=== PATIENT | male | born 1990 | race African-American/Black ===

== ENCOUNTER 2021-10-03 10:26 | Inpatient (IN) | payer OTHER, SELFPAY ==
--- NOTE | 2021-10-03 | ECG_ITS ---
Test Reason : MEDICAL CLEARANCE Blood Pressure : / mmHG Vent. Rate : 059 BPM Atrial Rate : 059 BPM P-R Int : 168 ms QRS Dur : 100 ms QT Int : 458 ms P-R-T Axes : 067 072 053 degrees QTc Int : 453 ms Sinus bradycardia Otherwise normal ECG When compared with ECG of 21-SEP-2019 13:53, No significant change was found Referred By: Kiersten Abbott Electronically Signed By:SELMA HERMAN MD
[2021-10-03 10:32] VITALS: BP 97/65; PULSE 65; RESP 18; TEMP 36.2; O2SAT 97; BMI 23.4
--- NOTE | 2021-10-03 11:01 | ED_ITS ---
HPI - Psych General Chief Complaint: ETOH/Substance Use Stated Complaint: detox crisis Time Seen by Provider: 10/03/21 11:00 Source: patient Mode of arrival: ambulatory Limitations: no limitations History of Present Illness MD complaint: suicidal ideation, feels depressed and alcohol abuse Onset (ago): day(s) (several) Duration: constant History of same: Yes Relieving factors: none Exacerbating factors: alcohol Context: recent alcohol abuse Associated psychiatric symptoms: depression and suicidal ideation Associated symptoms: denies other symptoms Treatments prior to arrival: none Related Data Allergies Allergy/AdvReac Type Severity Reaction Status Date / Time Pork/Porcine Containing AdvReac Stomach Verified 10/03/21 11:28 Products Upset Review of Systems Review of Systems: Constitutional : No Fever, No Chills ENT/Mouth : No Ear Pain, No Nasal Congestion, No sore throat Eyes: No Eye Pain, No Swelling, No Redness Cardiovascular : No Chest Pain, No SOB Respiratory : No Cough, No Sputum, No Dyspnea Gastrointestinal : No Nausea, No Vomiting, No Diarrhea, No Hematochezia, No Melena Genitourinary : No Dysuria, No Urinary Frequency, No Hematuria Musculoskeletal : No Myalgias Skin : No Skin Lesions, No rash Neuro : No Weakness, No Numbness, No Paresthesias, No Dizziness, No Headache Psych : positive Anxiety, positive Depression, positive SI no HI Heme/Lymph: No Lymphadenopathy Endocrine : No Polyuria, No Polydipsia All other systems reviewed and are negative [facility] Past Medical History Attestation statement: The following information was validated with the patient. Medical History Anxiety Depression PTSD (post-traumatic stress disorder) Social History Social History (Updated 10/03/21 @ 11:12 by Aurora Lara DO) Alcohol intake: current Patient Tobacco Use Status: Current everyday Tobacco user Substance Use Type: Crack/Cocaine and Marijuana Advance Directives: No Advance Directives Information Provided: Yes Physical Exam Vital Signs: Vital Signs: Last Vital Signs Temp 97.1 F 10/03/21 10:32 Pulse 65 10/03/21 10:32 Resp 18 10/03/21 10:32 BP 97/65 10/03/21 10:32 Pulse Ox 97 10/03/21 10:32 O2 Del Method 10/03/21 10:32 BMI result Body Mass Index 23.4 Appearance: Alert. Oriented X3. No acute distress. Calm and cooperative Eyes: Pupils equal, round and reactive to light. ENT: Pharynx normal. Neck: Normal inspection. Neck supple. CVS: Normal heart rate and rhythm. Pulses normal. Respiratory: No respiratory distress. Breath sounds normal. Abdomen: Soft and nontender. Skin: Skin warm and dry. Normal skin color. Normal skin turgor. Extremities: No lower extremity edema. No calf ttp Neuro: Oriented X 3. No motor deficit. No sensory deficit. CN 2-12 intact Course Course Course Narrative: Physician observation started at 1157am Patient placed in physician observation because the patient needed more time for [facility] to assess the need for psych admission. At the time observation was started the patient's vitals were stable, patient is alert and oriented. Neuro: nonfocal, CV RRR, Lungs clear S12 bed search MDM - Psych MDM Narrative Medical decision making narrative: 31 yo male with hx of depression, PTSD, has not been compliant with meds - drinking, smoking, using crack/cocaine comes in overwhelmed and feeling SI - at this time will obtain labs and refer to [facility] Lab Data Result diagrams: 10/03/21 11:26 10/03/21 11:26 Labs: Lab Results 10/03/21 10/03/21 10/03/21 Range/Units 11:11 11:11 11:26 WBC 5.4 (4.8-10.8) X10*3/uL RBC 4.57 L (4.60-5.80) X10*6/uL Hgb 13.9 L (14.0-18.0) g/dl Hct 41.0 L (42.0-52.0) % MCV 89.7 (80.0-98.0) fL MCH 30.4 (27.0-33.0) pg MCHC 33.9 (31.0-36.0) g/dl RDW 13.1 (11.0-16.0) % Plt Count 230 (160-400) X10*3/uL MPV 8.0 L (9.4-12.4) fL Immature Gran % (Auto) 0.2 (0.0-0.4) % Neut % (Auto) 33.8 L (45-73) % Lymph % (Auto) 55.8 H (20-40) % [place] % (Auto) 7.4 (2-11) % Eos % (Auto) 2.6 (0-4) % Baso % (Auto) 0.2 (0-2) % Lymph # (Auto) 3.0 (1.2-4.9) X10*3/uL [place] # (Auto) 0.4 (0.1-1.2) X10*3/uL Eos # (Auto) 0.1 (0.0-0.4) X10*3/uL Baso # (Auto) 0.0 (0.0-0.2) X10*3/uL Abs Immat Gran (auto) 0.01 (0.00-0.03) X10*3/uL Absolute Neuts (auto) 1.8 L (2.0-8.3) x10*3/uL Absolute Nucleated RBC 0.000 (0.0-0.012) X10*3/uL Nucleated RBC % (auto) 0.0 (0.0-0.2) /100WBC Sodium (135-145) mmol/L Potassium (3.3-5.1) mmol/L Chloride (96-108) mmol/L Carbon Dioxide (22-29) mmol/L Anion Gap (12-20) BUN (9-16) mg/dL Creatinine (0.5-1.4) mg/dL Estim Creat Clear Calc Estimated GFR Random Glucose (60-115) mg/dL Calcium (8.4-10.2) mg/dL Total Bilirubin (0.0-1.0) mg/dL Direct Bilirubin (0.0-0.5) mg/dL AST (5-37) U/L ALT (0-40) U/L Alkaline Phosphatase (39-117) U/L Total Protein (6.5-8.0) g/dL Albumin (3.5-5.0) g/dL Urine Opiates Screen Not Detected (Not Detect) Urine Fentanyl Screen Not Detected (Not Detect) Ur Barbiturates Screen Not Detected (Not Detect) Ur Phencyclidine Scrn Not Detected (Not Detect) Ur Amphetamines Screen Not Detected (Not Detect) U Benzodiazepines Scrn Not Detected (Not Detect) Urine Cocaine Screen POSITIVE H (Not Detect) U Marijuana (THC) Screen POSITIVE H (Not Detect) Ethyl Alcohol mg/dL COVID-19 ([facility]) Negative (Negative) COVID-19 Clin Com See Note 10/03/21 Range/Units 11:26 WBC (4.8-10.8) X10*3/uL RBC (4.60-5.80) X10*6/uL Hgb (14.0-18.0) g/dl Hct (42.0-52.0) % MCV (80.0-98.0) fL MCH (27.0-33.0) pg MCHC (31.0-36.0) g/dl RDW (11.0-16.0) % Plt Count (160-400) X10*3/uL MPV (9.4-12.4) fL Immature Gran % (Auto) (0.0-0.4) % Neut % (Auto) (45-73) % Lymph % (Auto) (20-40) % [place] % (Auto) (2-11) % Eos % (Auto) (0-4) % Baso % (Auto) (0-2) % Lymph # (Auto) (1.2-4.9) X10*3/uL [place] # (Auto) (0.1-1.2) X10*3/uL Eos # (Auto) (0.0-0.4) X10*3/uL Baso # (Auto) (0.0-0.2) X10*3/uL Abs Immat Gran (auto) (0.00-0.03) X10*3/uL Absolute Neuts (auto) (2.0-8.3) x10*3/uL Absolute Nucleated RBC (0.0-0.012) X10*3/uL Nucleated RBC % (auto) (0.0-0.2) /100WBC Sodium 139 (135-145) mmol/L Potassium 3.5 (3.3-5.1) mmol/L Chloride 106 (96-108) mmol/L Carbon Dioxide 24 (22-29) mmol/L Anion Gap 13 (12-20) BUN 8 L (9-16) mg/dL Creatinine 1.20 (0.5-1.4) mg/dL Estim Creat Clear Calc 94.9 Estimated GFR > 60 Random Glucose 108 (60-115) mg/dL Calcium 8.9 (8.4-10.2) mg/dL Total Bilirubin 0.4 (0.0-1.0) mg/dL Direct Bilirubin 0.2 (0.0-0.5) mg/dL AST 40 H (5-37) U/L ALT 31 (0-40) U/L Alkaline Phosphatase 43 (39-117) U/L Total Protein 6.9 (6.5-8.0) g/dL Albumin 4.2 (3.5-5.0) g/dL Urine Opiates Screen (Not Detect) Urine Fentanyl Screen (Not Detect) Ur Barbiturates Screen (Not Detect) Ur Phencyclidine Scrn (Not Detect) Ur Amphetamines Screen (Not Detect) U Benzodiazepines Scrn (Not Detect) Urine Cocaine Screen (Not Detect) U Marijuana (THC) Screen (Not Detect) Ethyl Alcohol 64 mg/dL COVID-19 ([facility]) (Negative) COVID-19 Clin Com Discharge Plan Discharge Clinical Impression: Polysubstance abuse Depression Qualifiers: Depression Type: other depression Qualified Code(s): F32.89 - Other specified depressive episodes Patient Disposition: Still a Patient
[2021-10-03] MEDS: Acetaminophen 325 MG TABLET 650 MG PO (11:24)
[2021-10-03] MEDS: Ondansetron ODT 4 MG TAB.RAPDIS TRANSLINGU (11:26)
[2021-10-03] MEDS: LORazepam 1 MG TABLET PO (11:32)
[2021-10-03 11:33] LABS: MANUAL DIFF FLAG NO
[2021-10-03 11:35] LABS: Basophils Percent Auto 0.2 % (0-2); Eosinophils Absolute Auto 0.1 X10*3/uL (0.0-0.4); Eosinophils Percent Auto 2.6 % (0-4); Hemoglobin 13.9 g/dl (14.0-18.0); Imm Gran Abs Auto 0.01 X10*3/uL (0.00-0.03); Imm Gran Pct Auto 0.2 % (0.0-0.4); Lymphocytes Percent Auto 55.8 % (20-40); Mean Corpuscular HGB Conc 33.9 g/dl (31.0-36.0); Mean Corpuscular Hemoglobin 30.4 pg (27.0-33.0); Mean Corpuscular Volume 89.7 fL (80.0-98.0); Monocytes Absolute Auto 0.4 X10*3/uL (0.1-1.2); Monocytes Percent Auto 7.4 % (2-11); Neutrophils Absolute Auto 1.8 x10*3/uL (2.0-8.3); Neutrophils Percent Auto 33.8 % (45-73); Platelet Count 230 X10*3/uL (160-400); Red Blood Count 4.57 X10*6/uL (4.60-5.80); Red Cell Distribution Width 13.1 % (11.0-16.0); White Blood Count 5.4 X10*3/uL (4.8-10.8)
[2021-10-03 11:48] LABS: Amphetamine Screen Urine Not Detected (Not Detect); Barbiturates, Urine Not Detected (Not Detect); Benzodiazepines Screen Urine Not Detected (Not Detect); Cannabinoid Screen Urine POSITIVE (Not Detect); Cocaine Screen Urine POSITIVE (Not Detect); Fentanyl, urine Not Detected (Not Detect); Opiate Screen Urine Not Detected (Not Detect); Phencyclidine Screen Urine Not Detected (Not Detect)
[2021-10-03 11:49] LABS: Alanine Aminotransferase 31 U/L (0-40); Albumin Level 4.2 g/dL (3.5-5.0); Alkaline Phosphatase 43 U/L (39-117); Anion Gap 13 (12-20); Aspartate Amino Transferase 40 U/L (5-37); Bilirubin Direct 0.2 mg/dL (0.0-0.5); Bilirubin Total 0.4 mg/dL (0.0-1.0); Blood Urea Nitrogen 8 mg/dL (9-16); Calcium 8.9 mg/dL (8.4-10.2); Carbon Dioxide 24 mmol/L (22-29); Chloride 106 mmol/L (96-108); Creatinine Clr Calc Pharmacy 94.9; Estimated Glomerular Filt Rate > 60; Ethanol 64 mg/dL; Glucose Random 108 mg/dL (60-115); Potassium 3.5 mmol/L (3.3-5.1); Sodium 139 mmol/L (135-145); Total Protein 6.9 g/dL (6.5-8.0)
[2021-10-03 11:53] LABS: COVID-19 Test Negative (Negative); IDNOW Serial# 16C4AD1C
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
--- NOTE | 2021-10-03 13:50 | MHC.RECOVSUP ---
? Reason for consult:recovery Support o Current location:[facility] o Identified substance use concern:Polysubstance - Seeking ATS (detox) - Support ? Intervention: o ATS bed search started/completed/in process o MAT started or to be started o Community resources provided o Harm reduction discussion ? Plan: o Referral to [facility] o Follow up tomorrow o Patient awaiting crisis evaluation o Patient to follow up with [facility] after discharge ? Additional information: Patient seeking detox, Radha coming to do an assessment, referred him to [facility] and the [facility] for MAT.
[2021-10-03] MEDS: FLUoxetine HCl 20 MG CAPSULE PO (18:35)
[2021-10-03] MEDS: QUEtiapine Fumarate 50 MG TABLET PO (18:35)
[2021-10-04] MEDS: traZODone HCL 50 MG TABLET PO (00:28)
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
[2021-10-04 07:04] VITALS: BP 120/59; PULSE 52; RESP 16; TEMP 36; O2SAT 96
[2021-10-04] MEDS: FLUoxetine HCl 20 MG CAPSULE PO (08:45)
[2021-10-04 09:52] LABS: Alanine Aminotransferase 26 U/L (0-40); Albumin Level 3.9 g/dL (3.5-5.0); Alkaline Phosphatase 39 U/L (39-117); Anion Gap 12 (12-20); Aspartate Amino Transferase 30 U/L (5-37); Bilirubin Total 0.2 mg/dL (0.0-1.0); Blood Urea Nitrogen 13 mg/dL (9-16); Calcium 8.8 mg/dL (8.4-10.2); Carbon Dioxide 25 mmol/L (22-29); Chloride 108 mmol/L (96-108); Cholesterol 166 mg/dL; Creatinine Clr Calc Pharmacy 96.6; Estimated Glomerular Filt Rate > 60; Glucose Fasting 88 mg/dL (60-99); HDL Cholesterol 57 mg/dL; LDL Cholesterol Calculated 95 mg/dl; Potassium 4.3 mmol/L (3.3-5.1); Sodium 141 mmol/L (135-145); Total Protein 6.6 g/dL (6.5-8.0); Triglycerides 70 mg/dL
[2021-10-04 10:40] LABS: Folate 11.3 ng/mL (> or = 4.0); Vitamin B12 213 pg/mL (200-900)
[2021-10-04] MEDS: Nicotine 7 MG PATCH.TD24 TRANSDERMA (12:01)
[2021-10-04] MEDS: QUEtiapine Fumarate 50 MG TABLET PO (12:01)
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
[2021-10-04 14:10] VITALS: BP 119/71; PULSE 60; RESP 16; TEMP 36.4; O2SAT 98
[2021-10-04] MEDS: LORazepam 1 MG TABLET PO (14:48)
[2021-10-05 06:00] VITALS: BP 115/77; PULSE 54; RESP 16; TEMP 36.4; O2SAT 99
[2021-10-05 09:04] LABS: Iron 145 mcg/dL (45-160); Percent Iron Saturation 38 % (15-50); Total Iron Binding Capacity 378 mcg/dL (228-428); Unsaturated Iron Binding 233 ug/dL
[2021-10-05] MEDS: Multivitamin TABLET 1 TAB PO (09:06)
[2021-10-05] MEDS: Thiamine HCL 100 MG TABLET PO (09:06)
[2021-10-05] MEDS: FLUoxetine HCl 20 MG CAPSULE PO (09:06)
[2021-10-05] MEDS: Folic Acid 1 MG TABLET PO (09:06)
[2021-10-05] MEDS: Nicotine 7 MG PATCH.TD24 TRANSDERMA (09:06)
[2021-10-05] MEDS: QUEtiapine Fumarate 50 MG TABLET PO ×2 (10:19→18:09)
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
[2021-10-05] MEDS: Prazosin HCL 1 MG CAPSULE 3 MG PO (20:09)
[2021-10-05] MEDS: QUEtiapine Fumarate 200 MG TABLET PO (20:10)
[2021-10-05 21:00] VITALS: BP 132/82; PULSE 61; RESP 16; TEMP 36.4; O2SAT 97
[2021-10-06] MEDS: Nicotine 7 MG PATCH.TD24 TRANSDERMA (09:15)
[2021-10-06] MEDS: Naltrexone HCl 50 MG TABLET 25 MG PO (09:16)
[2021-10-06] MEDS: FLUoxetine HCl Oral Solution 20 MG/5 ML SOLUTION 40 MG PO (09:16)
[2021-10-06] MEDS: Multivitamin TABLET 1 TAB PO (09:16)
[2021-10-06] MEDS: Folic Acid 1 MG TABLET PO (09:17)
[2021-10-06] MEDS: Thiamine HCL 100 MG TABLET PO (09:17)
[2021-10-06 09:30] VITALS: BP 139/86; PULSE 69; RESP 17; TEMP 36.3; O2SAT 94
[2021-10-06] MEDS: QUEtiapine Fumarate 50 MG TABLET PO (11:02)
--- NOTE | 2021-10-06 14:59 | HO.PSYCHPN ---
Subjective Subjective Date of Service: 10/06/21 Reason For Visit: SI Subjective Notes: Conditional Voluntary Healthcare Proxy: No Guardianship: No Medical Problems Affecting Mental Status: No Interim History: Pt wondering about in seroquel and prazosin as he finds them both helpful - still having nightmares at night- that is when VH- denies si/hi Medication Compliance: Yes Side effects from medications: No Attending Groups: Intermittent Review of Systems Acute medical concerns: No ciwa a 2 this am Medical Review of Systems: unchanged Review of Systems Review of Systems no physical complaints, no side effects Mental Status Exam Mental Status Exam Patient Appearance: Appropriate Patient Orientation: Person, Place, Time and Situation Level of Consciousness: Awake Patient Behavior: Appropriate and Guarded Mood Description: Anxious Affect Description: Constricted Patient Cognition Impaired: No Ability to Follow Directions: Good Speech Pattern: Clear Hallucinations: Visual (might be only when dreaming/nightmares) Thought Process: Intact and Goal Oriented Thought Content: positive for Linear Depressive Symptoms: Increased Anxiety and Difficulty Sleeping Judgement: Fair Diagnostics Vital Signs (24Hr): Vital Signs - 24 hr 10/05/21 21:00 10/06/21 09:30 Temperature 97.6 F 97.4 F Pulse Rate 61 69 Respiratory Rate 16 17 Blood Pressure 132/82 139/86 Pulse Oximetry 97 94 Oxygen Delivery Method Room Air Room Air BMI result Body Mass Index 23.4 Labs Results: 10/03/21 11:26 10/04/21 08:21 Labs: Laboratory Results - last 48 hr 10/05/21 08:36 Iron 145 TIBC 378 % Saturation 38 Unsat Iron Binding 233 EKG EKG: reviewed EKG Comment: qtc 453 Medications Medications Current Medications Acetaminophen (Acetaminophen 325 Mg Tablet) 650 mg PO Q6H PRN PRN Reason: Headache/Pain Mild Scale (1-3) Al Hydroxide/Mg Hydroxide (Magnesium Hydrox/Alum Hydrox 30 Ml Oral.Susp) 30 ml PO Q6H PRN PRN Reason: Heartburn/Nausea Fluoxetine HCl (Fluoxetine Hcl Oral Solution 20 Mg/5 Ml Solution) [address] [facility] Last Admin: 10/06/21 09:16 Dose: 40 mg Folic Acid (Folic Acid 1 Mg Tablet) [address] [facility] Last Admin: 10/06/21 09:17 Dose: 1 mg Hydroxyzine HCl (Hydroxyzine Hcl 50 Mg Tablet) 50 mg PO QID PRN PRN Reason: anxiety/restlessness Lorazepam (Lorazepam 1 Mg Tablet) 1 mg PO Q2H PRN PRN Reason: CIWA 8-11 Last Admin: 10/04/21 14:48 Dose: 1 mg Lorazepam (Lorazepam 1 Mg Tablet) 2 mg PO Q2H PRN PRN Reason: CIWA 12-15 Lorazepam (Lorazepam 1 Mg Tablet) 3 mg PO Q2H PRN PRN Reason: CIWA > 15. and call MD. Magnesium Hydroxide (Milk Of Magnesia 30 Ml Oral.Susp) 30 ml PO DAILY PRN PRN Reason: Constipation Multivitamins/Vitamin C (Multivitamin Tablet) 1 tab PO DAILY NIR Last Admin: 10/06/21 09:16 Dose: 1 tab Naltrexone HCl (Naltrexone Hcl 50 Mg Tablet) 25 mg PO DAILY NIR Stop: 10/07/21 09:01 Last Admin: 10/06/21 09:16 Dose: 25 mg Naltrexone HCl (Naltrexone Hcl 50 Mg Tablet) 50 mg PO DAILY NIR Nicotine (Nicotine 7 Mg Patch.Td24) [address] [facility] Last Admin: 10/06/21 09:15 Dose: 7 mg Nicotine Polacrilex (Nicotine Polacrilex 2 Mg Gum) 4 mg BUCCAL Q1H PRN PRN Reason: Nicotine Cravings Ondansetron HCl (Ondansetron Odt 4 Mg Tab.Rapdis) 4 mg TRANSLINGU Q8H PRN PRN Reason: Nausea and Vomiting Last Admin: 10/03/21 11:26 Dose: 4 mg Prazosin HCl (Prazosin Hcl 1 Mg Capsule) 3 mg PO BEDTIME NIR; Protocol Stop: 10/10/21 21:00 Last Admin: 10/05/21 20:09 Dose: 3 mg Quetiapine Fumarate (Quetiapine Fumarate 200 Mg Tablet) 200 mg PO BEDTIME NIR Stop: 10/11/21 21:01 Last Admin: 10/05/21 20:10 Dose: 200 mg Quetiapine Fumarate (Quetiapine Fumarate 50 Mg Tablet) 50 mg PO TID PRN PRN Reason: Anxiety Last Admin: 10/06/21 11:02 Dose: 50 mg Thiamine HCl (Thiamine Hcl 100 Mg Tablet) 100 mg PO DAILY NIR Last Admin: 10/06/21 09:17 Dose: 100 mg Allergies Allergies Allergy/AdvReac Type Severity Reaction Status Date / Time Pork/Porcine Containing AdvReac Stomach Verified 10/03/21 11:28 Products Upset Assessment & Plan Assessment & Plan (1) Alcohol use disorder, severe, dependence: Status: Acute Code(s): F10.20 - Alcohol dependence, uncomplicated Assessment and Plan: Naltrexone 25mg QDX2 days, then increase to 50mg QD follow up Friday tolelrating naltrexone, ciwa 2 this am - (2) Depression: Qualifiers: Depression Type: other depression Qualified Code(s): F32.89 - Other specified depressive episodes Status: Acute Code(s): F32.A - Depression, unspecified Assessment and Plan: would like increase serqouel to 75mg tid with 200mg qhs will inc pm seroquel to 250mg and prn to 75mg bid (3) PTSD (post-traumatic stress disorder): Status: Acute Code(s): F43.10 - Post-traumatic stress disorder, unspecified Assessment and Plan: will titrate prazosin tomorrow Plan see above he is improving, anxious, guarnded, only having vh when nightmares denies si/hi I spent minutes with the patient and/or on the patient floor today, greater than?50% of which was spent counseling/coordinating care. Patient educated on: medication risk/benefits Informed Consent: understands Reason for contiued inpatient stay Substantial Risk for: rapid decompensation
[2021-10-06 19:55] VITALS: BP 151/72; PULSE 68; RESP 18; TEMP 36.4; O2SAT 98
[2021-10-06] MEDS: Prazosin HCL 1 MG CAPSULE 3 MG PO (20:00)
[2021-10-06] MEDS: QUEtiapine Fumarate 50 MG TABLET 250 MG PO (20:00)
[2021-10-06] MEDS: hydrOXYzine HCL 25 MG TABLET PO (20:01)
[2021-10-07 06:00] VITALS: BP 137/71; PULSE 76; RESP 16; TEMP 36.6; O2SAT 98
[2021-10-07] MEDS: Nicotine 7 MG PATCH.TD24 TRANSDERMA (09:39)
[2021-10-07] MEDS: FLUoxetine HCl Oral Solution 20 MG/5 ML SOLUTION 40 MG PO (09:40)
[2021-10-07] MEDS: Multivitamin TABLET 1 TAB PO (09:40)
[2021-10-07] MEDS: Thiamine HCL 100 MG TABLET PO (09:40)
[2021-10-07] MEDS: Naltrexone HCl 50 MG TABLET 25 MG PO (09:41)
[2021-10-07] MEDS: QUEtiapine Fumarate 25 MG TABLET 75 MG PO ×2 (09:49→17:12)
[2021-10-07] MEDS: Folic Acid 1 MG TABLET PO (09:53)
--- NOTE | 2021-10-07 09:55 | HO.PSYCHPN ---
Subjective Subjective Date of Service: 10/07/21 Reason For Visit: SI Subjective Notes: Conditional Voluntary Healthcare Proxy: No Guardianship: No Medical Problems Affecting Mental Status: No Interim History: hopeful , better mood- vitals fine last pm slept better, woke up once and fell right back to sleep mood was better this am, starting to wane this afternoon Medication Compliance: Yes Side effects from medications: No Attending Groups: Yes Review of Systems Acute medical concerns: No Medical Review of Systems: unchanged Mental Status Exam Mental Status Exam Patient Appearance: Appropriate Patient Orientation: Person, Place, Time and Situation Level of Consciousness: Awake and Appropriate Patient Behavior: Appropriate Mood Description: Calm Affect Description: Appropriate Patient Cognition Impaired: No Ability to Follow Directions: Good Speech Pattern: Clear Hallucinations: None Thought Process: Intact Thought Content: positive for Goal Oriented Judgement: Fair Diagnostics Vital Signs (24Hr): Vital Signs - 24 hr 10/06/21 19:55 10/07/21 06:00 Temperature 97.6 F 97.9 F Pulse Rate 68 76 Respiratory Rate 18 16 Blood Pressure 151/72 H 137/71 Pulse Oximetry 98 98 Oxygen Delivery Method Room Air Room Air BMI result Body Mass Index 23.4 Labs Results: 10/03/21 11:26 10/04/21 08:21 Medications Medications Current Medications Acetaminophen (Acetaminophen 325 Mg Tablet) 650 mg PO Q6H PRN PRN Reason: Headache/Pain Mild Scale (1-3) Al Hydroxide/Mg Hydroxide (Magnesium Hydrox/Alum Hydrox 30 Ml Oral.Susp) 30 ml PO Q6H PRN PRN Reason: Heartburn/Nausea Fluoxetine HCl (Fluoxetine Hcl Oral Solution 20 Mg/5 Ml Solution) 40 mg PO DAILY [facility] Last Admin: 10/07/21 09:40 Dose: 40 mg Folic Acid (Folic Acid 1 Mg Tablet) 1 mg PO DAILY [facility] Last Admin: 10/07/21 09:53 Dose: 1 mg Hydroxyzine HCl (Hydroxyzine Hcl 25 Mg Tablet) 25 mg PO QID PRN PRN Reason: anxiety/restlessness Last Admin: 10/06/21 20:01 Dose: 25 mg Lorazepam (Lorazepam 1 Mg Tablet) 1 mg PO Q2H PRN PRN Reason: CIWA 8-11 Last Admin: 10/04/21 14:48 Dose: 1 mg Magnesium Hydroxide (Milk Of Magnesia 30 Ml Oral.Susp) 30 ml PO DAILY PRN PRN Reason: Constipation Multivitamins/Vitamin C (Multivitamin Tablet) 1 tab PO DAILY [facility] Last Admin: 10/07/21 09:40 Dose: 1 tab Naltrexone HCl (Naltrexone Hcl 50 Mg Tablet) 50 mg PO DAILY NIR Nicotine (Nicotine 7 Mg Patch.Td24) 7 mg TRANSDERMA DAILY [facility] Last Admin: 10/07/21 09:39 Dose: 7 mg Nicotine Polacrilex (Nicotine Polacrilex 2 Mg Gum) 4 mg BUCCAL Q1H PRN PRN Reason: Nicotine Cravings Ondansetron HCl (Ondansetron Odt 4 Mg Tab.Rapdis) 4 mg TRANSLINGU Q8H PRN PRN Reason: Nausea and Vomiting Last Admin: 10/03/21 11:26 Dose: 4 mg Prazosin HCl (Prazosin Hcl 1 Mg Capsule) 3 mg PO BEDTIME NIR; Protocol Stop: 10/10/21 21:00 Last Admin: 10/06/21 20:00 Dose: 3 mg Quetiapine Fumarate (Quetiapine Fumarate 50 Mg Tablet) 250 mg PO BEDTIME NIR Stop: 10/13/21 21:01 Last Admin: 10/06/21 20:00 Dose: 250 mg Quetiapine Fumarate (Quetiapine Fumarate 25 Mg Tablet) 75 mg PO BID PRN PRN Reason: anxiety/restlessness Last Admin: 10/07/21 09:49 Dose: 75 mg Thiamine HCl (Thiamine Hcl 100 Mg Tablet) 100 mg PO DAILY NIR Last Admin: 10/07/21 09:40 Dose: 100 mg Allergies Allergies Allergy/AdvReac Type Severity Reaction Status Date / Time Pork/Porcine Containing AdvReac Stomach Verified 10/03/21 11:28 Products Upset Assessment & Plan Assessment & Plan (1) Alcohol use disorder, severe, dependence: Status: Acute Code(s): F10.20 - Alcohol dependence, uncomplicated Assessment and Plan: Naltrexone 25mg QDX2 days, then increase to 50mg QD follow up Friday meño oneil 2 this am - hoping to get vivitrol also hoping to go to longer term transtion with rehab (2) Depression: Qualifiers: Depression Type: other depression Qualified Code(s): F32.89 - Other specified depressive episodes Status: Acute Code(s): F32.A - Depression, unspecified Assessment and Plan: feels less depressed on inc seroquel for most part (3) PTSD (post-traumatic stress disorder): Status: Acute Code(s): F43.10 - Post-traumatic stress disorder, unspecified Assessment and Plan: no need to further increase prazosin at this time pt improving overall Plan doing better denies si/hi I spent minutes with the patient and/or on the patient floor today, greater than?50% of which was spent counseling/coordinating care. Patient educated on: medication risk/benefits and therapeutic strategies Informed Consent: understands Reason for contiued inpatient stay Substantial Risk for: rapid decompensation
[2021-10-07] MEDS: hydrOXYzine HCL 25 MG TABLET PO (17:12)
[2021-10-07 20:58] VITALS: BP 115/69; PULSE 72; RESP 16; TEMP 36.6; O2SAT 99
[2021-10-07] MEDS: Prazosin HCL 1 MG CAPSULE 3 MG PO (21:13)
[2021-10-08 06:00] VITALS: BP 131/65; PULSE 66; RESP 16; TEMP 36.4; O2SAT 99
[2021-10-08] MEDS: FLUoxetine HCl Oral Solution 20 MG/5 ML SOLUTION 40 MG PO (09:18)
[2021-10-08] MEDS: Multivitamin TABLET 1 TAB PO (09:18)
[2021-10-08] MEDS: Folic Acid 1 MG TABLET PO (09:18)
[2021-10-08] MEDS: Naltrexone HCl 50 MG TABLET PO (09:18)
[2021-10-08] MEDS: Thiamine HCL 100 MG TABLET PO (09:18)
[2021-10-08] MEDS: Nicotine 7 MG PATCH.TD24 TRANSDERMA (09:19)
[2021-10-08] MEDS: QUEtiapine Fumarate 25 MG TABLET 75 MG PO (11:00)
--- NOTE | 2021-10-08 13:07 | MHC.RECOVRN ---
Met with pt in sensory room, along with RSRRadha Henriquez, to follow up on naltrexone initiation. Pt reports feeling okay and states It's helping. Pt has not been prescribed naltrexone in the past. Pt reports first drink at age 12 with it becoming problematic at age 16. Pt reports recent time in recovery, 8 months, with a recurrence for 1 week prior to admission. During pts time in recovery, pt found work, staying busy, and family to be helpful. Pt states We're . You get shunned when you aren't doing good but then are let back into the blackfeet when you're better. Pt speaks about family many times during the conversation, including feelings of disappointment in self for not maintaining recovery. Pt states I told my parents by 35 I would be able to give them money and make them rich. Not at this pace. Pt reports 2 ATS admissions, most recent was [facility] 8 months ago. From there, pt went to [facility] and continued on to [facility]. Pt hoping for something similar during this admission. T/w educated pt regarding TSS and Recovery Home levels of care, pt aware that CSS completion may be required. Pt is quite future oriented and hopeful to maintain abstinence. Pt provided with CSS/TSS/Recovery Home information, encouraged to make phone calls regarding bed availability and qualifications for admission. Discussed other recovery supports, pt interested in meeting with a [employer] while here-t/w will facilitate. Pt denied other questions or concerns at this time. T/w available as needed.
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
--- NOTE | 2021-10-08 17:55 | MHC.RECOVSUP ---
? Reason for consult Recovery Coaching o Current location: [address] o Identified substance use concern: Alcohol and Cocaine - Support ? Intervention: o Community resources provided o Harm reduction discussion ? Plan: o Referral to CCC o Patient to follow up with HF after discharge ? Additional information: Client wants further his recovery.. Client wants to go to a TSS or CSS... 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 Information on recovery Coaching and Hope for phil was given to patient.. we also talk about harm reduction and recovery. I informed the care team about patient plans
[2021-10-08 20:39] VITALS: BP 146/84; PULSE 68; RESP 18; TEMP 36.7; O2SAT 99
[2021-10-08] MEDS: Prazosin HCL 1 MG CAPSULE 4 MG PO (20:50)
[2021-10-09] MEDS: Folic Acid 1 MG TABLET PO (09:05)
[2021-10-09] MEDS: Naltrexone HCl 50 MG TABLET PO (09:05)
[2021-10-09] MEDS: Multivitamin TABLET 1 TAB PO (09:05)
[2021-10-09] MEDS: FLUoxetine HCl 20 MG CAPSULE 40 MG PO (09:06)
[2021-10-09] MEDS: Thiamine HCL 100 MG TABLET PO (09:06)
[2021-10-09] MEDS: Nicotine 7 MG PATCH.TD24 TRANSDERMA (09:08)
[2021-10-09 09:10] VITALS: BP 139/66; PULSE 69; RESP 20; TEMP 36.4; O2SAT 99
[2021-10-09] MEDS: QUEtiapine Fumarate 25 MG TABLET 75 MG PO (09:43)
[2021-10-09] MEDS: Nicotine 14 MG PATCH.TD24 TRANSDERMA (13:05)
[2021-10-09 14:54] LABS: COVID-19 Test Negative (Negative)
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
[2021-10-09] MEDS: Prazosin HCL 1 MG CAPSULE 4 MG PO (20:50)
[2021-10-09] MEDS: QUEtiapine Fumarate 300 MG TABLET PO (20:50)
[2021-10-09] MEDS: Nicotine Polacrilex Lozenge 2 MG LOZENGE BUCCAL (20:54)
[2021-10-09 21:00] VITALS: BP 155/90; PULSE 65; RESP 18; TEMP 36.7; O2SAT 98
[2021-10-10 08:30] VITALS: BP 118/59; PULSE 71; RESP 18; TEMP 36.4; O2SAT 100
[2021-10-10] MEDS: FLUoxetine HCl 20 MG CAPSULE 40 MG PO (09:22)
[2021-10-10] MEDS: Naltrexone HCl 50 MG TABLET PO (09:22)
[2021-10-10] MEDS: Thiamine HCL 100 MG TABLET PO (09:22)
[2021-10-10] MEDS: Multivitamin TABLET 1 TAB PO (09:22)
[2021-10-10] MEDS: Folic Acid 1 MG TABLET PO (09:22)
[2021-10-10] MEDS: Nicotine 14 MG PATCH.TD24 TRANSDERMA (09:23)
[2021-10-10] MEDS: QUEtiapine Fumarate 25 MG TABLET 75 MG PO (09:30)
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
== END 2021-10-10 13:05 | disposition other institution (70) | DRG 754 ==
LOC: HO.ED 11:20 → HO.PM5 21:06 → HO.PADLT16 10-04 13:22
PROVIDERS: Clinical Nurse Specialist Psychiatric/Mental Health, Adult; Physician Assistant; Admitting Provider Social Worker; Emergency Provider Emergency Medicine; Visit Provider Psychiatry & Neurology Psychiatry
DX: F32.A Depression, unspecified (principal); R45.851 Suicidal ideations; F10.20 Alcohol dependence, uncomplicated; F17.210 Nicotine dependence, cigarettes, uncomplicated; F43.10 Post-traumatic stress disorder, unspecified; Z71.6 Tobacco abuse counseling; Z20.822 Contact with and (suspected) exposure to COVID-19; Z79.899 Other long term (current) drug therapy
CPT/HCPCS: 36415; 80048; 80053; 80061; 80076; 80307; 82077; 82607; 82746; 83540; 84443; 85025; 87635; 93005; 99285

== ENCOUNTER 2022-05-12 12:58 | Emergency (ER) | payer MEDICAID, SELFPAY ==
[2022-05-12 13:12] VITALS: BP 144/78; BP 147/71; PULSE 83; PULSE 88; RESP 16; TEMP 36.8; O2SAT 97; BMI 25.1
[2022-05-12] MEDS: Ibuprofen 600 MG TABLET PO (13:21)
--- NOTE | 2022-05-12 13:50 | ED_ITS ---
HPI - Alcohol General Chief Complaint: ETOH/Substance Use Stated Complaint: ETOH Time Seen by Provider: 05/12/22 13:05 Source: patient Mode of arrival: EMS Limitations: no limitations History of Present Illness HPI narrative: This is a 31 years old male presented to the emergency department requesting detox from alcohol and opiates he denies SI and HI MD complaint: alcohol dependence Last drink: Just prior to admission Chronic alcohol use: Yes Previous visits for alcohol intoxication: Yes Recent trauma: No Associated symptoms: denies other symptoms Related Data Previous Rx's Medication Instructions Recorded fluoxetine 20 mg capsule 40 mg PO DAILY 30 days #60 caps 10/09/21 folic acid 1 mg tablet 1 mg PO DAILY 30 days #30 tabs 10/09/21 multivitamin (Daily-Harini tablet) 1 tab PO DAILY 30 days #30 tabs 10/09/21 naltrexone 50 mg tablet 50 mg PO DAILY 30 days #30 tabs 10/09/21 nicotine (polacrilex) 2 mg buccal 2 mg buccal Q1H PRN Nicotine 10/09/21 lozenge Cravings 30 days #90 ea nicotine 7 mg/24 hr daily 14 mg transdermal DAILY 28 days 10/09/21 transdermal patch #28 ea prazosin 1 mg capsule 4 mg PO BEDTIME 30 days #120 caps 10/09/21 quetiapine 25 mg tablet 75 mg PO Q4H PRN 10/09/21 Anxiety/Restlessness 30 days #180 tabs quetiapine 50 mg tablet 300 mg PO BEDTIME 30 days #180 tabs 10/09/21 thiamine mononitrate (vit B1) 100 100 mg PO DAILY 30 days #30 tabs 10/09/21 mg tablet Allergies Allergy/AdvReac Type Severity Reaction Status Date / Time Pork/Porcine Containing AdvReac Stomach Verified 10/03/21 11:28 Products Upset Review of Systems Constitutional: Constitutional: Reports no additional constitutional complaints ENT: Reports system reviewed and no additional complaints, except as doc umented Cardiovascular: Cardiovascular: Reports no additional cardiovascular complaints Respiratory: Respiratory: Reports no additional respiratory complaints PMFSH Past Medical History Medical History Alcohol use disorder, severe, dependence Anxiety Cannabis use disorder Cocaine use disorder Depression Polysubstance abuse PTSD (post-traumatic stress disorder) PTSD (post-traumatic stress disorder) Social History Social History Household Members: None Household Members Other:: LIVES BY SELF Housing: House Housing Other:: L[place] IN [place] Do you presently have visiting nurse or other home services: No Alcohol intake: current Alcohol intake frequency: 3 or more drinks per day Alcohol type: hard liquor Patient Tobacco Use Status: Current everyday Tobacco user Tobacco use type: Cigarette Smoked in Last 30 Days: No e-Cigarette/Vaping Use: Never Used Second Hand Smoke Exposure: No Use of substances other than those prescribed or required for medical reasons: Yes Substance Use Type: Crack/Cocaine Advance Directives: No Advance Directives Information Provided: No service: No Sexual orientation: Straight/Heterosexual Physical Exam ED Vital Signs: Vital Signs - 24 hr 05/12/22 13:12 05/12/22 15:44 Temperature 98.2 F 98.1 F Pulse Rate 83 78 Respiratory Rate 16 16 Blood Pressure 147/71 H 141/52 H Pulse Oximetry 97 97 Oxygen Delivery Method Room Air Room Air BMI result Body Mass Index 25.1 Patient none is not toxic appear well Const General: cooperative Orientation/consciousness: patient oriented x3 Limitations: no limitations HENMT Ears: hearing grossly normal bilaterally General nose exam: Normal nares present Mouth: Normal oral and palatal mucosa present Throat: Yes posterior oropharynx normal Neck Neck: Yes normal visual inspection and Yes full ROM Chest Chest palpation & inspection: normal inspection of the chest Resp Effort & Inspection: normal respiratory effort and able to speak in complete sentences Cardio Jugular venous distension: no JVD Rate: regular rate Rhythm: regular rhythm GI Inspection: Yes normal to inspection Palpation (GI): Soft to palpation, not firm, nontender and no guarding Auscultation: normal bowel sounds Skin General skin exam: no rashes or lesions noted Neuro General: patient oriented x3 Course Reevaluation(s) Reevaluation #1: Patient remained stable waiting for the care team evaluation will be signing the patient out to Dr Booth Time: 16:16 Reevaluation #2: Signed off to Dr Booth Time: 16:17 Medical Decision Making Medical Decision Making MDM Narrative: Patient presented with alcohol abuse and opioid use disorder complain requesting detox would go ahead and consult crisis Differential Diagnosis Differential Diagnoses: The differential diagnosis associated with the presentation includes Alcohol abuse/heroin abuse hypokalemia Admission/Observation Consideration of admission/observation: Escalation of care including admission/observation considered Lab Data 05/12/22 14:06 05/12/22 14:06 Labs: Lab Results 05/12/22 05/12/22 05/12/22 Range/Units 14:06 14:06 14:54 WBC 13.8 H (4.8-10.8) X10*3/uL RBC 4.99 (4.60-5.80) X10*6/uL Hgb 14.8 (14.0-18.0) g/dl Hct 44.2 (42.0-52.0) % MCV 88.6 (80.0-98.0) fL MCH 29.7 (27.0-33.0) pg MCHC 33.5 (31.0-36.0) g/dl RDW 13.1 (11.0-16.0) % Plt Count 270 (160-400) X10*3/uL MPV 8.0 L (9.4-12.4) fL Immature Gran % (Auto) 0.4 (0.0-0.4) % Neut % (Auto) 81.8 H (45-73) % Lymph % (Auto) 13.9 L (20-40) % [place] % (Auto) 3.6 (2-11) % Eos % (Auto) 0.1 (0-4) % Baso % (Auto) 0.2 (0-2) % Lymph # (Auto) 1.9 (1.2-4.9) X10*3/uL [place] # (Auto) 0.5 (0.1-1.2) X10*3/uL Eos # (Auto) 0.0 (0.0-0.4) X10*3/uL Baso # (Auto) 0.0 (0.0-0.2) X10*3/uL Abs Immat Gran (auto) 0.05 H (0.00-0.03) X10*3/uL Absolute Neuts (auto) 11.3 H (2.0-8.3) x10*3/uL Absolute Nucleated RBC 0.000 (0.0-0.012) X10*3/uL Nucleated RBC % (auto) 0.0 (0.0-0.2) /100WBC Sodium 139 (135-145) mmol/L Potassium 5.1 (3.3-5.1) mmol/L Chloride 101 (96-108) mmol/L Carbon Dioxide 20 L (22-29) mmol/L Anion Gap 23 H (12-20) BUN 16 (9-16) mg/dL Creatinine 0.99 (0.5-1.4) mg/dL Estim Creat Clear Calc 111.6 Estimated GFR > 60 POC Glucose 85 (60-115) mg/dL Random Glucose 59 L* (60-115) mg/dL Calcium 9.8 D (8.4-10.2) mg/dL Total Bilirubin 0.4 (0.0-1.0) mg/dL AST 52 H (5-37) U/L ALT 43 H (0-40) U/L Alkaline Phosphatase 50 (39-117) U/L Total Protein 8.2 H (6.5-8.0) g/dL Albumin 5.0 (3.5-5.0) g/dL Ethyl Alcohol 29 mg/dL Medications Administered Discontinued Medications Generic Name Dose Route Start Last Admin Trade Name Freq PRN Reason Stop Dose Admin Ibuprofen 600 mg 05/12/22 13:14 05/12/22 13:21 Ibuprofen 600 Mg Tablet PO 05/12/22 13:15 600 mg ONCE ONE Administration Discharge Plan Discharge Clinical Impression: Alcohol abuse, Opioid abuse Patient Disposition: Still a Patient Prescriptions: No Action multivitamin [Daily-Harini] Tablet 1 tab PO DAILY 30 Days Qty: 30 0RF quetiapine 25 mg Tablet 75 mg PO Q4H PRN (Reason: Anxiety/Restlessness) 30 Days Qty: 180 0RF prazosin 1 mg Capsule 4 mg PO BEDTIME 30 Days Qty: 120 0RF Protocol: Hold for SBP< HOLD for SBP < : 90 naltrexone 50 mg Tablet 50 mg PO DAILY 30 Days Qty: 30 0RF folic acid 1 mg Tablet 1 mg PO DAILY 30 Days Qty: 30 0RF fluoxetine 20 mg Capsule 40 mg PO DAILY 30 Days Qty: 60 0RF nicotine 7 mg/24 hr Patch 24 Hour 14 mg transdermal DAILY 28 Days Qty: 28 0RF nicotine (polacrilex) 2 mg Lozenge 2 mg buccal Q1H PRN (Reason: Nicotine Cravings) 30 Days Qty: 90 0RF quetiapine 50 mg Tablet 300 mg PO BEDTIME 30 Days Qty: 180 0RF thiamine mononitrate (vit B1) 100 mg Tablet 100 mg PO DAILY 30 Days Qty: 30 0RF Interventions: [place]-Suicide Risk Severity Scale Last Done: 05/12/22 15:20
[2022-05-12 14:09] LABS: MANUAL DIFF FLAG NO
[2022-05-12 14:10] LABS: Basophils Percent Auto 0.2 % (0-2); Eosinophils Percent Auto 0.1 % (0-4); Hematocrit 44.2 % (42.0-52.0); Hemoglobin 14.8 g/dl (14.0-18.0); Imm Gran Abs Auto 0.05 X10*3/uL (0.00-0.03); Imm Gran Pct Auto 0.4 % (0.0-0.4); Lymphocytes Absolute Auto 1.9 X10*3/uL (1.2-4.9); Lymphocytes Percent Auto 13.9 % (20-40); Mean Corpuscular HGB Conc 33.5 g/dl (31.0-36.0); Mean Corpuscular Hemoglobin 29.7 pg (27.0-33.0); Mean Corpuscular Volume 88.6 fL (80.0-98.0); Monocytes Absolute Auto 0.5 X10*3/uL (0.1-1.2); Monocytes Percent Auto 3.6 % (2-11); Neutrophils Absolute Auto 11.3 x10*3/uL (2.0-8.3); Neutrophils Percent Auto 81.8 % (45-73); Platelet Count 270 X10*3/uL (160-400); Red Blood Count 4.99 X10*6/uL (4.60-5.80); Red Cell Distribution Width 13.1 % (11.0-16.0); White Blood Count 13.8 X10*3/uL (4.8-10.8)
[2022-05-12 14:40] LABS: Alanine Aminotransferase 43 U/L (0-40); Alkaline Phosphatase 50 U/L (39-117); Anion Gap 23 (12-20); Aspartate Amino Transferase 52 U/L (5-37); Bilirubin Total 0.4 mg/dL (0.0-1.0); Blood Urea Nitrogen 16 mg/dL (9-16); Calcium 9.8 mg/dL (8.4-10.2); Carbon Dioxide 20 mmol/L (22-29); Chloride 101 mmol/L (96-108); Creatinine Clr Calc Pharmacy 111.6; Estimated Glomerular Filt Rate > 60; Ethanol 29 mg/dL; Glucose Random 59 mg/dL (60-115); Potassium 5.1 mmol/L (3.3-5.1); Sodium 139 mmol/L (135-145); Total Protein 8.2 g/dL (6.5-8.0)
--- OUTSIDE RECORDS SUMMARY | 2022-05-12 14:52 | XMS_ITS | Continuity of Care Document ---
:1990 Author Organization [facility] Address [address] [place] [address]- Care Team Providers Name Role Phone Not on Staff, PCP Primary Care Physician Unavailable Encounter [facility] Date(s): 01/10/20 - 01/10/[address] [address]- [facility] Encounter Diagnosis Acute depression (Final) - 01/10/20 Discharge Disposition: A-D/C Home Attending Physician: Katlyn Alcaraz MD Admitting Physician: Katlyn Alcaraz MD Referring Physician: Not on Staff, Referring MD Allergies, Adverse Reactions, Alerts Substance Reaction Severity Status NKA Active Immunizations Not Given Vaccine Date Status Refusal Reason tetanus/diphtheria/pertussis, acel(Tdap) 07/24/19 Not Giv en Patient Refuses Vital Signs Most recent to oldest 1 2 3 [Reference Range]: Height 180 cm 180 cm 180 cm (01/10/20 10:54 AM) (01/10/20 6:31 AM) (01/10/20 1:30 AM) Weight 77 kg 77 kg 77 kg (01/10/20 10:54 AM) (01/10/20 6:31 AM) (01/10/20 1:30 AM) Oxygen Saturation [94-100 98 % 98 % %] (01/10/20 6:31 AM) (01/10/20 1:30 AM) Pulse Rate [55-90 bpm] 84 bpm 70 bpm (01/10/20 6:31 AM) (01/10/20 1:30 AM) Body Mass Index 23.77 [18.5-24.99] (01/10/20 6:31 AM) Blood Pressure 124/52 mm Hg 139/75 mm Hg 168/86 mm Hg [90-138/55-84 mm Hg] (01/10/20 6:31 AM) *H* *H* (01/10/20 2:41 AM) (01/10/20 1:3 0 AM) Respiratory Rate [16-30 12 br/min 17 br/min br/min] *L* (01/10/20 1:30 AM) (01/10/20 6:31 AM) Temperature [96.8-100.4 97.6 DegF 97.5 DegF DegF] (01/10/20 6:31 AM) (01/10/20 1:30 AM) Mode of Delivery (Oxygen) Room air Room air (01/10/20 6:31 AM) (01/10/20 1:30 AM) Blood pressure sites Arm, right Arm, right Arm, right (01/10/20 6:31 AM) (01/10/20 2:41 AM) (01/10/20 1:30 AM) Temperature Route Oral Oral (01/10/20 6:31 AM) (01/10/20 1:30 AM) Dry Weight 77 kg 77 kg 77 kg (01/10/20 10:54 AM) (01/10/20 6:31 AM) (01/10/20 1:30 AM) Social History Social History Type Response Tobacco Use: 4 or less cigarettes(le ss than 1/4 pack)/day in last 30 days. Sex
[2022-05-12 14:58] LABS: Glucose, Whole Blood 85 mg/dL (60-115)
--- NOTE | 2022-05-12 15:05 | MHC.RECOVRN ---
Met with pt in [facility] to discuss substance use and desire for treatment. Pt awake, alert, easily engages in conversation but guarded at first. Pt reports alcohol use x 1 week, 2 pints plus a couple beers. Pt also reports cocaine use, avoids questions regarding route, amount, and frequency, x 1 week. Pt reports his uncle and precipitated the increase in use. Pt reports prior to uncle passing away he would have a couple beers. Pt reports hx psychiatric medications but has stopped taking them 3 months ago. Pt states I just started smoking weed to help me calm down and stopped the meds. Pt reports PTSD, states I have these images in my head of people in [place]. Body parts. Pt reports that occurred 10 years ago and pt has difficulty coping, especially with sleep. Pt reports he had been living with his aunt for 6 months but she had to move to [place] for work. Pt has been staying with a friend but states He kicks me out whenever he feels like it. Out into the cold. Pt tearful throughout conversation. Reports feeling overwhelmed, depressed, and anxious. Pt unsure of what would be helpful. Discussed ATS level of care. Pt has been to ATS, CSS, and residential settings in the past. Pt feels mental health is a factor in substance use. States I isolate so much I start doing drugs. Pt reports he had been admitted to [facility] psychiatrically before, reports it is the best care he has received and staff were more like family than my own. In regards to SI, pt states sometimes I have thoughts, I'm so tired, I couldn't leave this world like that. Discussed with CARE Team, pt to move to [facility] for possible CARE Team evaluation. Will continue to follow.
[2022-05-12 15:44] VITALS: BP 141/52; PULSE 78; RESP 16; TEMP 36.7; O2SAT 97
--- NOTE | 2022-05-12 17:37 | PC.NURSE ---
PT IN NAD SINCE ARRIVAL TO POD. STATES MILD ANXIETY. HAS BEEN EATING AND SLEEPING THIS AFTERNOON. ENCOURAGE PO FLUIDS. WILL CONTINUE TO MONITOR FOR CIWA NEEDS.
--- NOTE | 2022-05-12 23:34 | PC.NURSE ---
assumed care of patient at 2315 - patient moved from ED BH pod into EDr room 12
--- NOTE | 2022-05-13 03:07 | PC.NURSE ---
patient sleeping comfortably on stretcher - respirations even and unlabored, equal chest rise and fall. no apparent distress. will CTM
[2022-05-13 06:40] VITALS: BP 137/73; PULSE 61; RESP 20; O2SAT 98
--- NOTE | 2022-05-13 06:42 | PC.NURSE ---
patient resting on stretcher. vital signs updated. patient sweaty and warm to touch, palms moist, denies nausea/vomiting, denies visual or auditory hallucinations, reports anxiety and slight tingling to fingertips. CIWA score 8 will report to provider for possible ativan order. will CTM .
[2022-05-13] MEDS: Folic Acid 1 MG TABLET PO (06:58)
[2022-05-13] MEDS: Thiamine HCL 100 MG TABLET PO (06:58)
[2022-05-13] MEDS: LORazepam 1 MG TABLET 2 MG PO (06:58)
[2022-05-13 09:50] LABS: Glucose, Whole Blood 93 mg/dL (60-115)
--- NOTE | 2022-05-13 09:52 | PC.NURSE ---
pt started on 1:1 obs with sitter for vague SI
--- NOTE | 2022-05-13 10:07 | MHC.RECOVRN ---
Met with pt in ED12 to follow up after discussion yesterday. Pt laying in bed, asleep, wakes to voice. Completely covered in blankets. Pt reports inability to sleep due to crazy dreams. Pt reports he did not receive medication to help with sleep. In regards to SI, pt is difficult to engage, vague, and does not answer questions directly. Pt states In my dreams it's like, fuck it. Pt reports most prominent withdrawal symptom is chills. Pt reports using opioids x 1 this past week. However, pt has been using cocaine which likely could contain fentanyl, in turn causing increased opioid withdrawal symptoms. Awaiting UDS. Discussed with pts RN as well as CARE Team.
--- NOTE | 2022-05-13 11:54 | PC.NURSE ---
pt reporting vague SI, he reports I've been thinking back and forth about a plan for when I leave pt reporting thoughts such as life would be better if he were not here . pt alert and oriented, 1:1 sitter at bedside
[2022-05-13 20:12] LABS: Amphetamine Screen Urine Not Detected (Not Detect); Barbiturates, Urine Not Detected (Not Detect); Benzodiazepines Screen Urine Not Detected (Not Detect); Cannabinoid Screen Urine POSITIVE (Not Detect); Cocaine Screen Urine POSITIVE (Not Detect); Fentanyl, urine Not Detected (Not Detect); Opiate Screen Urine Not Detected (Not Detect); Phencyclidine Screen Urine Not Detected (Not Detect)
--- NOTE | 2022-05-13 20:27 | MHC.CARE ---
CARE Team notified by Pod JEFERSON Moreno that pt is asking for DC. Per NURIS Chowdhury pt does not need to be held for a crisis assessment. CARE Team briefly checks in with pt who agrees to speak with a resource recovery specialist before he leaves. Pt referred to [facility] resource recovery specialist.
[2022-05-13] MEDS: Naloxone HCl Nasal TAKE HOME 4 MG SPRAY NOSTRILALT (20:29)
[2022-05-13 20:39] LABS: COVID-19 Test Negative (Negative); IDNOW Serial# 6674DD1D
--- NOTE | 2022-05-13 20:41 | MHC.RECOVSUP ---
Reason for consult: Recovery Resources o Current location: [facility] o Identified substance use concern: Alcohol and Cocaine <del>-</del> <del>Overdose</del> <del>-</del> <del>Withdrawal</del> - Seeking ATS (detox) - Support ? Intervention: <del>o</del> <del>ATS</del> <del>bed</del> <del>search</del> <del>started/completed/in</del> <del>process</del> <del>o</del> <del>MAT</del> <del>started</del> <del>or</del> <del>to</del> <del>be</del> <del>started</del> o Community resources provided o Harm reduction discussion ? Plan: <del>o</del> <del>Referral</del> <del>to</del> <del>[facility]</del> <del>o</del> <del>Bed</del> <del>search</del> <del>in</del> <del>progress</del> <del>to</del> <del>o</del> <del>Follow</del> <del>up</del> <del>tomorrow</del> <del>o</del> <del>Patient</del> <del>awaiting</del> <del>crisis</del> <del>evaluation</del> <del>o</del> <del>Patient</del> <del>to</del> <del>follow</del> <del>up</del> <del>with</del> <del>[facility]</del> <del>after</del> <del>discharge</del> ? Additional information: I was able to meet with pt prior to d/c and provide him with recovery resources. pt stated that he has tried achieving and maintaining his recovery but always ends up using and does not know how it happened. pt stated that he has been in residential treatments before but has never completed because he always left when he got his job back. pt is going to his aunt's house. I provided him with my office number and pt said he will give me a call tomorrow morning and I will work with him and another assistant track coach to get him connected and admitted to [facility]. pt stated that he does not have SI but does have a lot of anxiety because he is leaving.
== END 2022-05-13 20:53 | disposition home or self-care (01) ==
PROVIDERS: Emergency Provider Emergency Medicine
DX: F10.229 Alcohol dependence with intoxication, unspecified (principal); Y90.1 Blood alcohol level of 20-39 mg/100 ml; F11.10 Opioid abuse, uncomplicated; F14.10 Cocaine abuse, uncomplicated; F17.210 Nicotine dependence, cigarettes, uncomplicated; Z20.822 Contact with and (suspected) exposure to COVID-19; Z20.828 Contact with and (suspected) exposure to other viral communicable diseases; Z79.899 Other long term (current) drug therapy; Z71.6 Tobacco abuse counseling; Z71.41 Alcohol abuse counseling and surveillance of alcoholic
CPT/HCPCS: 36415; 80053; 80307; 82077; 82947; 85025; 87635; 96374; 99285

== ENCOUNTER 2023-12-15 11:25 | Inpatient (IN) | payer MEDICAID, OTHER, SELFPAY ==
--- NOTE | 2023-12-15 11:35 | ED_ITS ---
HPI - General Adult General Chief complaint: Psychiatric Symptoms Stated complaint: SI NO PLAN,FROM STORE,CALM/COOP @ THIS TIME Time Seen by Provider: 12/15/23 11:35 Source: patient and EMS Mode of arrival: EMS Limitations: no limitations History of Present Illness ED Provider: Latisha Wadsworth PA-C HPI narrative: Patient is a 33 year old assigned male at with a history of PTSD, cocaine use disorder, alcohol use disorder, and depression presenting to the emergency department today with suicidal ideation with a plan to overdose. Patient states that he has felt more depressed lately and has a plan of killing himself by overdosing. Patient denies any dizziness, lightheadedness, abdominal pain, nausea, vomiting, fever, chills, blurry vision, double vision, loss of vision, chest pain, difficulty breathing, shortness of breath, back pain, night sweats, pain with urination, increased urinary frequency, increased urinary urgency, blood in his urine or stool, syncope or a near syncopal episode, recent trauma or falls, bowel incontinence, bladder incontinence, or any other complaints at this time. Relieving factors: none Exacerbating factors: none Associated symptoms: denies other symptoms Treatments prior to arrival: none Related Data Home Medications ?Medication ?Instructions ?Recorded ?Confirmed No Known Home Meds 12/15/23 12/15/23 Allergies Allergy/AdvReac Type Severity Reaction Status Date / Time Pork/Porcine Containing AdvReac Stomach Verified 12/15/23 11:52 Products Upset Review of Systems 2 Constitutional: Constitutional: Reports no additional constitutional complaints, Denies chills, Denies fever(s) and Denies night sweats Eyes: Eyes: Reports no additional eye complaints, Denies blurry vision, Denies change in vision, Denies diplopia, Denies eye discharge, Denies loss of vision and Denies eye pain ENT: Denies dizziness Cardiovascular: Cardiovascular: Reports no additional cardiovascular complaints, Denies chest pain, Denies lightheadedness, Denies Loss of Consciousness and Denies dyspnea Respiratory: Respiratory: Reports no additional respiratory complaints and Denies dyspnea Gastrointestinal: Gastrointestinal: Reports no additional gastrointestinal complaints, Denies abdominal pain, Denies melena, Denies hematochezia, Denies change in bowel habits and Denies change in stool character Genitourinary: Genitourinary: Reports no additional male genitourinary complaints, Denies hematuria, Denies oliguria, Denies difficulty urinating, Denies dysuria, Denies urinary frequency, Denies urinary hesitancy, Denies urinary incontinence and Denies urinary urgency Musculoskeletal: Musculoskeletal: Reports no additional musculoskeletal complaints, Denies numbness and Denies tingling Neurologic: Denies dizziness, Denies loss of vision, Denies numbness and Denies tingling Psychiatric: Psychiatric: Denies homicidal ideation and Reports suicidal ideation Endocrine: Endocrine: Reports no additional endocrine complaints Hematologic/Lymphatic: Hematologic/Lymphatic: Reports no additional hematologic/lymphatic complaints Allergic/Immunologic: Allergic/Immunologic: Reports no additional allergic/immunologic complaints PMFSH Past Medical History Attestation statement: The following information was validated with the patient. Source: old records reviewed and nursing notes reviewed Medical History PTSD (post-traumatic stress disorder) Cannabis use disorder Cocaine use disorder Alcohol use disorder, severe, dependence Polysubstance abuse Anxiety Depression PTSD (post-traumatic stress disorder) Social History Social History Household Members: None Household Members Other:: LIVES BY SELF Housing: House Housing Other:: LIVES IN [place] IN [place] Do you presently have visiting nurse or other home services: No Alcohol intake: current Alcohol intake frequency: 3 or more drinks per day Alcohol type: hard liquor Patient Tobacco Use Status: Current everyday Tobacco user Tobacco use type: Cigarette Smoked in Last 30 Days: Yes e-Cigarette/Vaping Use: Never Used Second Hand Smoke Exposure: No Use of substances other than those prescribed or required for medical reasons: Yes Substance Use Type: Crack/Cocaine Last Used Substance: Days (ago) Advance Directives: No Advance Directives Information Provided: No Do you have a plan to hurt others: No Plan service: No Sexual orientation: Straight/Heterosexual Physical Exam ED Vital Signs: Vital Signs - 24 hr 12/16/23 06:16 Respiratory Rate 16 BMI result Body Mass Index 23.0 Const General: cooperative, no acute distress, alert and awake Nutritional Appearance: well nourished Orientation/consciousness: patient oriented x3 Limitations: no limitations HENMT Head: Yes normal to inspection and Yes atraumatic Ears: hearing grossly normal bilaterally and external ears normal General nose exam: Normal external nose present, no nasal discharge noted and no epistaxis Face and sinus: Yes normal facial exam, No abrasion and No laceration Mouth: Normal oral and palatal mucosa present, no drooling and no muffled voice Eyes General: appearance normal, both eyes and all related structures Periorbital: periorbital findings normal Eyelids: Yes eyelids normal Conjunctivae: conjunctivae normal Pupils: Equal, round and reactive pupils present EOM: EOMs intact bilaterally Neck Neck: Yes normal visual inspection, Yes full ROM and Yes no lymphadenopathy Chest Chest palpation & inspection: normal inspection of the chest Resp Effort & Inspection: normal respiratory effort and able to speak in complete sentences GI Inspection: Yes normal to inspection Neuro General: patient oriented x3 and moves all extremities Cranial nerves: Yes Equal, round and reactive pupils present Cognition (Neuro): normal cognition Extrem General: Yes normal to inspection, Yes full ROM and Yes capillary refill normal Psych Appearance: grossly normal Mental Status: mental status grossly normal Affect: Sad affect present Attitude: Guarded attititude/behavior present Thought content: Suicidality present Course Reevaluation(s) Reevaluation #1: The patient has been kept in the emergency department on physician observation for psychiatric disposition. The patient has been accepted to our inpatient psychiatric unit. Patient has been stable. I reviewed the patient's EKG. The EKG seems stable to me. Emergency department physician observation will therefore be ended when the patient goes to the inpatient psychiatric unit. Medications Administered Discontinued Medications Generic Name Dose Route Start Last Admin Trade Name Freq PRN Reason Stop Dose Admin Trazodone HCl 25 mg 12/15/23 16:04 12/15/23 16:53 Trazodone Hcl 25 Mg Halftab PO 12/15/23 16:05 25 mg ONCE ONE Administration Medical Decision Making Medical Decision Making [facility] Narrative: Patient is a 33 year old assigned male at with a history of PTSD, cocaine use disorder, alcohol use disorder, and depression presenting to the emergency department today with suicidal ideation with a plan to overdose. Patient's physical exam was as noted in the physical exam portion of this note. Patient's blood work was unremarkable. Patient's urine showed no acute process. Patient evaluated by CARE team who recommended inpatient level of psychiatric care. I explained my physical exam findings as well as all test results to the patient. I answered all questions asked by the patient. Patient will remain in the department until either admitted here for continued psychiatric care or transferred to an appropriate psychiatric facility. Differential Diagnosis Differential Diagnoses: The differential diagnosis associated with the presentation includes SI Admission/Observation Consideration of admission/observation: Escalation of care including admission/observation considered Patient to be admitted here for psychiatric care or transferred to an appropriate psychiatric facility. Lab Data [facility] Lab Attestation statement: I reviewed the patient's lab results. My interpretation of these results are in the [facility] Rationale portion of this note. 12/15/23 11:55 12/15/23 11:55 Labs: Lab Results 12/15/23 12/15/23 Range/Units 11:48 11:55 WBC 4.8 (4.8-10.8) X10*3/uL RBC 4.97 (4.60-5.80) X10*6/uL Hgb 15.3 (14.0-18.0) g/dl Hct 45.4 (42.0-52.0) % MCV 91.3 (80.0-98.0) fL MCH 30.8 (27.0-33.0) pg MCHC 33.7 (31.0-36.0) g/dl RDW 13.7 (11.0-16.0) % Plt Count 262 (160-400) X10*3/uL MPV 8.3 L (9.4-12.4) fL Immature Gran % (Auto) 0.4 (0.0-0.4) % Neut % (Auto) 40.0 L (45-73) % Lymph % (Auto) 48.2 H (20-40) % [place] % (Auto) 10.2 (2-11) % Eos % (Auto) 0.8 (0-4) % Baso % (Auto) 0.4 (0-2) % Lymph # (Auto) 2.3 (1.2-4.9) X10*3/uL [place] # (Auto) 0.5 (0.1-1.2) X10*3/uL Eos # (Auto) 0.0 (0.0-0.4) X10*3/uL Baso # (Auto) 0.0 (0.0-0.2) X10*3/uL Abs Immat Gran (auto) 0.02 (0.00-0.03) X10*3/uL Absolute Neuts (auto) 1.9 L (2.0-8.3) x10*3/uL Absolute Nucleated RBC 0.000 (0.0-0.012) X10*3/uL Nucleated RBC % (auto) 0.0 (0.0-0.2) /100WBC Sodium 141 (135-145) mmol/L Potassium 4.0 (3.3-5.1) mmol/L Chloride 102 (96-108) mmol/L Carbon Dioxide 28 (22-29) mmol/L Anion Gap 15 (12-20) BUN 17 H (9-16) mg/dL Creatinine 1.20 (0.5-1.4) mg/dL Estim Creat Clear Calc 92.6 Estimated GFR > 60 Random Glucose 77 (60-115) mg/dL Calcium 9.7 (8.4-10.2) mg/dL Total Bilirubin 0.6 (0.0-1.0) mg/dL AST 224 H (5-37) U/L ALT 199 H (0-40) U/L Alkaline Phosphatase 44 (39-117) U/L Total Protein 7.9 (6.5-8.0) g/dL Albumin 4.7 (3.5-5.0) g/dL Urine Color Dark Yellow Urine Appearance Clear Urine pH 6.0 (5.0-9.0) Ur Specific [place] >= 1.030 H (1.005-1.025) Urine Protein 100 (2+) H (Neg-Trace) mg/dL Urine Glucose (UA) Negative (Negative) mg/dL Urine Ketones 80 (Negative) mg/dL Urine Blood Negative (Negative) Urine Nitrite Negative (Negative) Ur Leukocyte Esterase Negative (Negative) Urine RBC 0-2 (0-2) /HPF Urine WBC 0-5 (0-5) /HPF Ur Squamous Epith Cells 0-2 (0-2) /HPF Urine Bacteria None Seen (None Seen) Hyaline Casts 0-2 (0-2) /LPF Salicylates < 5.0 L (15-30) mg/dL Urine Opiates Screen Not Detected (Not Detect) Ur Buprenorphine Scrn Not Detected (Not Detect) ng/mL Ur Oxycodone Screen Not Detected (Not Detect) ng/mL Urine Methadone Screen Not Detected (Not Detect) ng/mL Urine Fentanyl Screen Not Detected (Not Detect) Acetaminophen < 3 (<30) mcg/mL Ur Barbiturates Screen Not Detected (Not Detect) Ur Phencyclidine Scrn Not Detected (Not Detect) Ur Amphetamines Screen Not Detected (Not Detect) U Benzodiazepines Scrn Not Detected (Not Detect) Urine Cocaine Screen POSITIVE H (Not Detect) U Marijuana (THC) Screen POSITIVE H (Not Detect) Ethyl Alcohol < 10 mg/dL COVID-19 (ANGEL) Negative (Negative) COVID-19 Clin Com See Note Independent Interpretation I performed an independent interpretation of an: EKG Interpretation: EKG at 17:27 shows sinus bradycardia 52 beats per minute. The EKG is very similar to previous EKGs. I do not feel there are any new or acute changes. Ken Isbell Independent Historian Clinical information obtained from an independent historian. History obtained from or confirmed by: EMS (EMS provided additional history and confirmed the history provided by the patient.) Critical Care Time Critical Care Time Critical Care Time: Yes Total Critical Care Time: 35 Attestation: I spent 35 minutes of Critical Care Time with this patient. This does not include time spent on separately reported billable procedures. Discharge Plan Discharge Clinical Impression: Suicidal ideation Patient Disposition: Admitted As Inpatient Interventions: [place]-Suicide Risk Severity Scale Last Done: 12/15/23 12:00
[2023-12-15 11:43] VITALS: BP 140/88; PULSE 84; O2SAT 98
[2023-12-15 11:51] VITALS: BP 128/73; PULSE 96; RESP 16; TEMP 36.9; O2SAT 98; BMI 23.0
[2023-12-15 12:01] VITALS: BP 128/73; PULSE 96; RESP 16; TEMP 36.9; O2SAT 98
[2023-12-15 12:03] LABS: MANUAL DIFF FLAG NO
[2023-12-15 12:05] LABS: Appearance Urine Clear; Color Urine Dark Yellow; Glucose Urine UA Negative (Negative); Leukocyte Esterase Urine Negative (Negative); Nitrite Urine Negative (Negative); Specific Gravity - Urine >= 1.030 (1.005-1.025); UMIC TRIGGER UA YES; Urine Blood Negative (Negative); Urine Ketones 80 mg/dL (Negative); Urine Protein 100 (2+) mg/dL (Neg-Trace)
[2023-12-15 12:09] LABS: Basophils Percent Auto 0.4 % (0-2); Eosinophils Percent Auto 0.8 % (0-4); Hematocrit 45.4 % (42.0-52.0); Hemoglobin 15.3 g/dl (14.0-18.0); Imm Gran Abs Auto 0.02 X10*3/uL (0.00-0.03); Imm Gran Pct Auto 0.4 % (0.0-0.4); Lymphocytes Absolute Auto 2.3 X10*3/uL (1.2-4.9); Lymphocytes Percent Auto 48.2 % (20-40); Mean Corpuscular HGB Conc 33.7 g/dl (31.0-36.0); Mean Corpuscular Hemoglobin 30.8 pg (27.0-33.0); Mean Corpuscular Volume 91.3 fL (80.0-98.0); Mean Platelet Volume 8.3 fL (9.4-12.4); Monocytes Absolute Auto 0.5 X10*3/uL (0.1-1.2); Monocytes Percent Auto 10.2 % (2-11); Neutrophils Absolute Auto 1.9 x10*3/uL (2.0-8.3); Platelet Count 262 X10*3/uL (160-400); Red Blood Count 4.97 X10*6/uL (4.60-5.80); Red Cell Distribution Width 13.7 % (11.0-16.0); White Blood Count 4.8 X10*3/uL (4.8-10.8)
[2023-12-15 12:12] LABS: Bacteria Urine None Seen (None Seen); Hyaline Casts Urine 0-2 /LPF (0-2); RBC Urine 0-2 /HPF (0-2); Squamous Epithelial Cell Urine 0-2 /HPF (0-2); WBC Urine 0-5 /HPF (0-5)
[2023-12-15 12:15] LABS: COVID-19 Test Negative (Negative); IDNOW Serial# 08D9AD1C
[2023-12-15 12:16] LABS: Amphetamine Screen Urine Not Detected (Not Detect); Barbiturates, Urine Not Detected (Not Detect); Benzodiazepines Screen Urine Not Detected (Not Detect); Buprenorphine Scr Not Detected (Not Detect); Cannabinoid Screen Urine POSITIVE (Not Detect); Cocaine Screen Urine POSITIVE (Not Detect); Fentanyl, urine Not Detected (Not Detect); Methadone Screen, Urine Not Detected (Not Detect); Opiate Screen Urine Not Detected (Not Detect); Oxycodone Screen Urine Not Detected (Not Detect); Phencyclidine Screen Urine Not Detected (Not Detect)
[2023-12-15 12:20] LABS: Acetaminophen LAB < 3 mcg/mL (<30); Alanine Aminotransferase 199 U/L (0-40); Albumin Level 4.7 g/dL (3.5-5.0); Alkaline Phosphatase 44 U/L (39-117); Anion Gap 15 (12-20); Aspartate Amino Transferase 224 U/L (5-37); Bilirubin Total 0.6 mg/dL (0.0-1.0); Blood Urea Nitrogen 17 mg/dL (9-16); Calcium 9.7 mg/dL (8.4-10.2); Carbon Dioxide 28 mmol/L (22-29); Chloride 102 mmol/L (96-108); Creatinine Clr Calc Pharmacy 92.6; Estimated Glomerular Filt Rate > 60; Ethanol < 10 mg/dL; Glucose Random 77 mg/dL (60-115); Salicylate < 5.0 mg/dL (15-30); Sodium 141 mmol/L (135-145); Total Protein 7.9 g/dL (6.5-8.0)
[2023-12-15] MEDS: traZODone HCL 25 MG HALFTAB PO (16:53)
--- NOTE | 2023-12-15 16:54 | MHC.CARE ---
Pt was assessed by CARE team and will be an Adult IPLOC bed search, a section 12 is in his chart. If a bed is not found tomorrow, a mental status update will be competed.
--- NOTE | 2023-12-15 17:18 | ECG_ITS ---
Test Reason : CHECK FOR PROLONGED QT Blood Pressure : / mmHG Vent. Rate : 057 BPM Atrial Rate : 057 BPM P-R Int : 154 ms QRS Dur : 092 ms QT Int : 460 ms P-R-T Axes : 000 146 140 degrees QTc Int : 447 ms Suspect limb lead reversal, interpretation assumes no reversal Sinus bradycardia with sinus arrhythmia Lateral infarct , age undetermined Abnormal ECG When compared with ECG of 03-OCT-2021 19:27, Lateral infarct is now Present ST less elevated in Anterior leads Nonspecific T wave abnormality now evident in Inferior leads T wave inversion now evident in Anterolateral leads Referred By: Generic ED Physician Electronically Signed By:
[2023-12-16 06:16] VITALS: RESP 16
--- NOTE | 2023-12-16 07:13 | PC.NURSE ---
Assumed care of patient at 0645. At this time the patient is resting quietly in their bed. No signs of distress observed.
--- NOTE | 2023-12-16 08:43 | PHA.MEDREC ---
Addendum entered by Dane Best RP 12/16/23 08:46: Reviewed by [facility] Original Note: Pharmacy Consult ? Medication Reconciliation Pharmacy has reviewed the medication reconciliation done by nurse.
[2023-12-16 15:27] VITALS: BP 148/78; PULSE 52; RESP 16; TEMP 36.4; O2SAT 98
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
[2023-12-16] MEDS: traZODone HCL 50 MG TABLET PO (20:36)
[2023-12-17 08:18] VITALS: BP 153/103; PULSE 62; TEMP 36.3; O2SAT 98
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
--- NOTE | 2023-12-17 15:01 | MHC.RECOVRN ---
Attempted to meet with pt x 2 after receiving request for consult Pt sleeping both times and declined visit. [facility] to return at a later time. Rebeca Greer APRN, aware.
[2023-12-17 21:31] VITALS: BP 121/59; PULSE 84; TEMP 36.6; O2SAT 99
[2023-12-17] MEDS: traZODone HCL 50 MG TABLET PO (21:59)
[2023-12-17] MEDS: hydrOXYzine HCL 25 MG TABLET PO (22:00)
[2023-12-17] MEDS: QUEtiapine Fumarate 50 MG TABLET 150 MG PO (22:00)
[2023-12-17] MEDS: LORazepam 1 MG TABLET PO (22:06)
[2023-12-18] MEDS: FLUoxetine HCl 10 MG CAPSULE PO (08:49)
[2023-12-18] MEDS: LORazepam 1 MG TABLET PO ×2 (08:49→16:10)
--- NOTE | 2023-12-18 09:50 | MHC.RECOVRN ---
Pt continues to declining meeting with ACS. Resources left at bedside. Pt to inform staff if he changes his mind and would like to meet.
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
[2023-12-18 20:30] VITALS: BP 135/73; PULSE 74; RESP 16; TEMP 36.4; O2SAT 97
[2023-12-19 08:00] VITALS: BP 123/95; PULSE 62; RESP 18; TEMP 36.6; O2SAT 97
[2023-12-19] MEDS: LORazepam 1 MG TABLET PO (08:46)
[2023-12-19] MEDS: FLUoxetine HCl 10 MG CAPSULE PO ×2 (08:46→12:42)
[2023-12-19 12:42] VITALS: BP 141/91
[2023-12-19] MEDS: cloNIDine HCL 0.1 MG TABLET PO (12:42)
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
--- NOTE | 2023-12-19 14:42 | PC.NURSE ---
Pt discharged, via [employer], with all belongings in possession.
== END 2023-12-19 14:38 | disposition home or self-care (01) | DRG 751 ==
LOC: HO.ED 18:47 → HO.PM5 12-16 13:03
PROVIDERS: Physician Assistant Medical; Admitting Provider Clinical Nurse Specialist Psychiatric/Mental Health, Adult; Emergency Provider Emergency Medicine; Visit Provider Psychiatry & Neurology Psychiatry
DX: F33.3 Major depressive disorder, recurrent, severe with psychotic symptoms (principal); R45.851 Suicidal ideations; F43.10 Post-traumatic stress disorder, unspecified; F10.20 Alcohol dependence, uncomplicated; F14.10 Cocaine abuse, uncomplicated; F17.210 Nicotine dependence, cigarettes, uncomplicated; Z20.822 Contact with and (suspected) exposure to COVID-19; Z79.899 Other long term (current) drug therapy
CPT/HCPCS: 80053; 80143; 80179; 80307; 81001; 85025; 87635; 93005; 99285; S9485

== ENCOUNTER → 2023-12-16 12:57 | Outpatient (BNV) | payer MEDICAID, OTHER, SELFPAY | PROVIDERS: Admitting Provider Clinical Nurse Specialist Psychiatric/Mental Health, Adult; Emergency Provider Emergency Medicine; Visit Provider Psychiatry & Neurology Psychiatry | DX: F33.3 Major depressive disorder, recurrent, severe with psychotic symptoms (principal); F10.20 Alcohol dependence, uncomplicated; F14.10 Cocaine abuse, uncomplicated; F43.11 Post-traumatic stress disorder, acute; F12.90 Cannabis use, unspecified, uncomplicated | CPT/HCPCS: 99232; 99233; 99499 ==